=== PATIENT | female | born 1935 | race Caucasian/White ===

== ENCOUNTER 2017-02-04 10:43 | Day surgery (SDC) | payer OTHER ==
[~2017-02-04] VITALS: Ht 165.1 cm; Wt 77.1 kg
[~2017-02-04 10:43] MED LIST: ACID REDUCER 1150 MG PO; ADVIL200 MG PO; ALLERGY RELIEF180 MG PO; ALLERGY25 M4 PO; CALCIUM + D3 E1 EACH PO; CRANBERRY TABL1 EACH PO; GLUCOPHAGE500 MG PO; HYZAAR 100-11 TABLET PO; KLOR-CON M2020 MEQ PO; LO-DOSE ASPIRIN81 M1 PO; MAGNESIUM400 M1 PO; METAMUCIL0.4 GM PO; MEVACOR20 MG PO; NEURONTIN100 MG PO; PRESERVISION S1 EACH PO; PROAIR RESPICL90 MCG IH; SPIRIVA RESPIMAT4 G1 IH; SYNTHROID112 MCG PO; TESSALON200 MG PO; VITAMIN D31000 UNI2 PO
[2017-02-04 11:21] LABS: POINT-OF-CARE METER ID UU14174212
[2017-02-04 11:34] VITALS: BP 175/73
[2017-02-04 14:04] LABS: POINT-OF-CARE METER ID UU13113675
[2017-02-04 14:30] VITALS: BP 197/75
== END 2017-02-04 15:30 ==
LOC: SDC 10:43
PROVIDERS: Orthopaedic Surgery Hand Surgery
PROC: 0LN70ZZ Release Right Hand Tendon, Open Approach (ICD-10-PCS; principal; 2017-02-04)
DX: M65.841 Other synovitis and tenosynovitis, right hand (principal); M65.321 Trigger finger, right index finger; I10 Essential (primary) hypertension; E11.9 Type 2 diabetes mellitus without complications; E78.00 Pure hypercholesterolemia, unspecified; E03.9 Hypothyroidism, unspecified; J44.9 Chronic obstructive pulmonary disease, unspecified; Z79.84 Long term (current) use of oral hypoglycemic drugs; Z79.82 Long term (current) use of aspirin
CPT/HCPCS: 82948; J0690; J2250; J7050; S0020